=== PATIENT | male | born 1995 | race Caucasian/White ===

== ENCOUNTER 2021-07-13 12:28 | Inpatient (IN) | payer OTHER, SELFPAY ==
[~2021-07-13] VITALS: Ht 172.7 cm; Wt 76.7 kg
[2021-07-13 12:28] VITALS: BP 140/91
[2021-07-13 13:59] LABS: BASOPHILS # (AUTO) 0.1 K/uL (0.00-0.22); EOSINOPHILS % (AUTO) 0.4 % (0.0-4.0); HEMATOCRIT 42.5 % (36-52); HEMOGLOBIN 14.7 g/dL (12.0-18.0); LYMPHOCYTES # (AUTO) 1.8 K/uL (2.0-11.5); LYMPHOCYTES % (AUTO) 28.8 % (20.5-51.1); MEAN CORPUSCULAR HEMOGLOBIN 31 pg (27-31); MEAN CORPUSCULAR HGB CONC 35 g/dL (33-37); MEAN CORPUSCULAR VOLUME 88.3 fL (80-94); MONOCYTES # (AUTO) 0.5 K/uL (0.8-1.0); MONOCYTES % (AUTO) 8.6 % (1.7-9.3); NEUTROPHILS # (AUTO) 3.8 K/uL (1.8-7.7); NEUTROPHILS % (AUTO) 61.2 % (42.2-75.2); PLATELET COUNT (AUTO) 338 K/uL (140-450); RED BLOOD CELL COUNT(AUTO) 4.82 MIL/uL (4.20-6.10); RED CELL DISTRIBUTION WIDTH 13.4 % (11.6-13.7); WHITE BLOOD COUNT (AUTO) 6.2 K/uL (4.8-10.8)
[2021-07-13] MEDS ORDERED: HALOPERIDOL IM 5 MG/ML VIAL IM ONE (14:30)
[2021-07-13] MEDS ORDERED: LORazepam 2 MG/ML VIAL IM ONE (14:30)
[2021-07-13 14:31] LABS: ALBUMIN 3.9 g/dL (3.4-5.0); ANION GAP 16.4 (8-16); ASPARTATE AMINOTRANSFERASE 24 U/L (15-37); CARBON DIOXIDE 23.9 mmol/L (21-32); CHLORIDE 107 mmol/L (98-107); CREATININE 0.7 mg/dL (0.6-1.3); GFR ARICAN-AMERICAN 177 mL/min (>90); GLUCOSE 89 mg/dL (74-106); POTASSIUM 3.3 mmol/L (3.5-5.1); SALICYLATE 3.5 mg/dL (2.8-20.0); SODIUM SERUM 144 mmol/L (136-145); TOTAL BILIRUBIN 0.4 mg/dL (0.0-1.0); UREA NITROGEN, BLOOD 6 mg/dL (7-18)
[2021-07-13 14:47] LABS: ACETAMINOPHEN < 0.5 ug/ml (10-30)
[2021-07-13 15:08] LABS: APPEARANCE,URINE CLEAR (CLEAR); BILIRUBIN,URINE NEGATIVE (NEGATIVE); BLOOD, URINE NEGATIVE (NEGATIVE); COLOR,URINE YELLOW (YELLOW); LEUKOCYTE ESTERASE ,URINE NEGATIVE (NEGATIVE); NITRITE, URINE NEGATIVE (NEGATIVE); PH,URINE 6.5 (5.0-9.0); UGLUCOSE NEGATIVE (NEGATIVE)
[2021-07-13 16:24] LABS: BARBITURATE, URINE NEGATIVE ng/ml (NEG <=200)
[2021-07-13 16:25] LABS: BENZODIAZEPINE, URINE NEGATIVE ng/mL (NEG <=200); CANNABINOID, URINE POSITIVE ng/mL (NEG <=50); COCAINE, URINE NEGATIVE ng/mL (NEG <=300); OPIATE, URINE NEGATIVE ng/mL (NEG <=2000); PHENCYCLIDINE SCREEN,URINE NEGATIVE ng/mL (NEG <=25)
[2021-07-13] MEDS ORDERED: OLANZapine 2.5 MG TAB PO SCH (22:19)
[2021-07-13] MEDS ORDERED: OLANZapine 5 MG TAB ONE (22:40)
[2021-07-13] MEDS ORDERED: OLAN2.5T1 PO (22:45)
[2021-07-13] MEDS ORDERED: MIRT-91 PO (22:48)
[2021-07-14] MEDS: OLANZapine 5 MG TAB PO SCH (21:08)
[2021-07-14] MEDS ORDERED: diphenhydrAMINE 50 MG CAP PO ONE (22:15)
[2021-07-15] MEDS ORDERED: ACETAMINOPHEN 325 MG TAB PO PRN (12:00)
[2021-07-15] MEDS ORDERED: LORazepam 1 MG TAB PO PRN (12:00)
[2021-07-15 13:06] VITALS: BP 116/48
[2021-07-15 16:00] VITALS: BP 121/53
[2021-07-15] MEDS ORDERED: NICOTINE TRANSD SYS 21 MG/24 HR PATCH TD SCH (17:00)
[2021-07-15] MEDS ORDERED: MIRTAZAPINE 15 MG TAB ONE (19:47)
[2021-07-15] MEDS: OLANZapine 5 MG TAB PO SCH (20:31)
[2021-07-15] MEDS ORDERED: MIRTAZAPINE 15 MG TAB PO SCH (21:00)
[2021-07-16 00:06] VITALS: BP 125/72
[2021-07-16 04:00] VITALS: BP 112/72
[2021-07-16 06:06] LABS: ANION GAP 11.7 (8-16); CARBON DIOXIDE 27.1 mmol/L (21-32); CREATININE 0.8 mg/dL (0.6-1.3); POTASSIUM 3.8 mmol/L (3.5-5.1)
[2021-07-16 06:36] LABS: BASOPHILS # (AUTO) 0.1 K/uL (0.00-0.22); BASOPHILS % (AUTO) 0.9 % (0.0-2.0); EOSINOPHILS # (AUTO) 0.1 K/uL (0-0.4); HEMATOCRIT 47.8 % (36-52); HEMOGLOBIN 16.1 g/dL (12.0-18.0); LYMPHOCYTES # (AUTO) 2.5 K/uL (2.0-11.5); LYMPHOCYTES % (AUTO) 33.4 % (20.5-51.1); MEAN CORPUSCULAR HEMOGLOBIN 31 pg (27-31); MEAN CORPUSCULAR HGB CONC 34 g/dL (33-37); MEAN CORPUSCULAR VOLUME 90.5 fL (80-94); MONOCYTES # (AUTO) 0.5 K/uL (0.8-1.0); NEUTROPHILS # (AUTO) 4.2 K/uL (1.8-7.7); NEUTROPHILS % (AUTO) 56.7 % (42.2-75.2); PLATELET COUNT (AUTO) 315 K/uL (140-450); RED BLOOD CELL COUNT(AUTO) 5.28 MIL/uL (4.20-6.10); RED CELL DISTRIBUTION WIDTH 13.7 % (11.6-13.7); WHITE BLOOD COUNT (AUTO) 7.5 K/uL (4.8-10.8)
[2021-07-16 08:00] VITALS: BP 116/58
[2021-07-16] MEDS ORDERED: MULTIVITAMIN/MINERALS 1 TAB PO SCH (09:00)
[2021-07-16] MEDS ORDERED: THIAMINE 100 MG TAB PO SCH (09:00)
[2021-07-16] MEDS ORDERED: FOLIC ACID 1 MG TAB PO SCH (09:00)
[2021-07-16] MEDS ORDERED: MIRT-33 PO (14:05)
[2021-07-16] MEDS ORDERED: OLAN5TAB65 PO (14:05)
[2021-07-16 14:32] VITALS: BP 116/58
== END 2021-07-16 15:50 | disposition home or self-care (01) | DRG 775 ==
LOC: MED 12:28 → MTU 07-15 11:58
PROVIDERS: ADMIT Internal Medicine; ATTEND Internal Medicine
DX: F10.129 Alcohol abuse with intoxication, unspecified (principal); R45.851 Suicidal ideations; F23 Brief psychotic disorder; F12.90 Cannabis use, unspecified, uncomplicated; F17.200 Nicotine dependence, unspecified, uncomplicated; I10 Essential (primary) hypertension; F43.10 Post-traumatic stress disorder, unspecified; F41.9 Anxiety disorder, unspecified; Y90.9 Presence of alcohol in blood, level not specified; Z20.822 Contact with and (suspected) exposure to COVID-19; Z59.00 Homelessness unspecified
CPT/HCPCS: 36415; 71045; 80048; 80053; 80305; 81003; 82550; 84484; 85025; 87081; 93005; 96372; 99291; G0480; G0482; J1630; J2060; Q0163; U0003